=== PATIENT | female | born 2000 | race Asian ===

== ENCOUNTER 2024-05-06 11:59 | Emergency (ER) | payer BC ==
[~2024-05-06] VITALS: Ht 165.1 cm; Wt 75.0 kg
[2024-05-06 12:27] VITALS: O2SAT 97
[2024-05-06 13:38] VITALS: BP 113/65; PULSE 76; RESP 16; TEMP 36.6; O2SAT 96
[2024-05-06] MEDS: ACETAMINOPHEN 325MG TABLET PO ONE (13:40)
== END 2024-05-06 15:30 | disposition home or self-care (01) ==
LOC: ER 11:59
DX: M25.561 Pain in right knee (principal); X50.1XXA Overexertion from prolonged static or awkward postures, initial encounter; Y93.89 Activity, other specified; Y92.89 Other specified places as the place of occurrence of the external cause; Y99.8 Other external cause status
CPT/HCPCS: 29505; 73562; 99283